=== PATIENT | male | born 1965 | race Caucasian/White ===

== ENCOUNTER 2017-02-24 03:47 | Emergency (ER) | payer BC ==
[~2017-02-24] VITALS: Ht 185.4 cm; Wt 97.2 kg
[~2017-02-24 03:47] MED LIST: PRILOSEC40 MG PO; PROTONIX40 MG PO
[2017-02-24 04:33] LABS: HEMATOCRIT 40.9 % (38.0-50.0); MCHC 33.7 G/DL (30.0-36.0); MCV 94.9 FL (86-99); PLATELET COUNT 278 K/uL (156-360); RBC DIS.WIDTH-CV 11.8 % (11.8-14.6); RBC DIS.WIDTH-SD 41.1 % (39-53); RED BLOOD COUNT 4.31 M/uL (4.00-5.50); WHITE BLOOD COUNT 5.8 K/uL (4.1-10.2)
[2017-02-24 04:45] LABS: CHLORIDE 106 mEq/L (99-109); POTASSIUM 3.8 mEq/L (3.7-5.4); SODIUM 141 mEq/L (136-147)
[2017-02-24 04:46] LABS: GLUCOSE 100 mg/dL (70-99)
[2017-02-24 04:48] LABS: ANION GAP 9 MEQ/L (2-14)
[2017-02-24 04:50] LABS: GFR ESTIMATE (CALCULATED) > 59 mL/min/
[2017-02-24 04:51] LABS: UREA NITROGEN (BUN) 15 mg/dL (9-23)
[2017-02-24 04:53] LABS: CREATINE KINASE 233 IU/L (1-294); TOTAL CK 233 IU/L (1-294)
[2017-02-24 05:01] LABS: CK-MB 2.5 ng/mL (0.0-4.9)
[2017-02-24 05:18] LABS: TROP-I INTERPRETATION NEGATIVE; TROPONIN-I < 0.01 ng/mL (0.0-0.30)
[2017-02-24 06:00] VITALS: BP 143/92
== END 2017-02-24 06:04 | disposition home or self-care (01) ==
LOC: EME 03:47
PROVIDERS: Emergency Medicine
DX: T43.211A Poisoning by selective serotonin and norepinephrine reuptake inhibitors, accidental (unintentional), initial encounter (principal); T39.011A Poisoning by aspirin, accidental (unintentional), initial encounter; R45.1 Restlessness and agitation; F41.1 Generalized anxiety disorder; R68.2 Dry mouth, unspecified; E78.5 Hyperlipidemia, unspecified
CPT/HCPCS: 80048; 82550; 82553; 84484; 85027; 93005; 99281; 99284